=== PATIENT | female | born 1995 | race Caucasian/White ===

== ENCOUNTER 2017-05-21 15:51 | Inpatient (IN) | payer OTHER ==
[~2017-05-21] VITALS: Ht 149.9 cm; Wt 76.0 kg
--- OUTSIDE RECORDS SUMMARY | ~2017-05-21 | XMS ---
Demographics + + + | Address | [address] | | | [place] [address] | + + + | Preferred Language | Unknown | + + + | Marital Status | Unknown | + + + | Restorationist Affiliation | Unknown | + + + | Race | Unknown | + + + | Ethnic Group | Unknown | + + + Author + + + | Author | [facility] | + + + | Organization | [facility] | + + + | Address | 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 | | | | | | | | of cervix | | | | | | +---------+ + + +--------+ + + | Problem | Encounter | Z34.90 | | | Active | [id number] | | | for | | | | | | | | supervisio | | | | | | | | n of | | | | | | | | normal | | | | | | | | | | | | | | +---------+ + + +--------+ + + | Problem | Acute | 462 | | | Active | [id number] | | | pharyngiti | | | | | | | | s NOS | | | | | | +---------+ + + +--------+ + + | Problem | Headache | 784.0 | | | Active | [id number] | +---------+ + + +--------+ + + | Problem | 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
[~2017-05-21 15:51] MED LIST: ALLEGRA-D 24 H1 EACH PO; BACTRIM DS TAB1 EACH PO; BENADRYL25 MG PO; CLINDAMYCIN HC300 MG PO; MEDROL4 M1 PO; MIRENA1 EACH IY; NORCO 5-325 TA1 EACH PO; PREDNISONE20 MG PO; SUDOGEST30 MG PO
--- NOTE | 2017-05-23 09:14 | PR ---
[facility] [address] [place] [address] Signed PP Progress Notes Datetime Report Generated by CPN: 05/23/2017 09:14 SUBJECTIVE: [id number] Pain: Within normal limits Nausea/Vomiting: Denies Vital Signs: [id number] Vital Signs: Reviewed; Within Normal Limits Notable Details: PP Hgb/Hct = 10.4/30.4 EXAM: [id number] Abdomen/Uterus: Normal Lochia: Normal Extremities: Normal IMPRESSION/PLAN/PROCEDURES: [id number] Impression: Normal progression Plan: Discharge Procedures: None Progress Notes: Doing well, wants to go home Signing Physician: Carlyle Yates MD CC: *Electronically Signed* 05/23/17 0914 CARLYLE YATES MD PATIENT NAME: TERRENCE DYE PROGRESS NOTE DATE OF : 93 PHYSICIAN: CARLYLE YATES MD RPT #: [id number] REPORT IS CONFIDENTIAL AND NOT TO BE RELEASED WITHOUT AUTHORIZATION
== END 2017-05-23 17:20 | disposition home or self-care (01) | DRG 775 ==
LOC: US 15:51 → FBC 17:35
PROVIDERS: ADMIT General Practice
PROC: 10E0XZZ Delivery of Products of Conception, External Approach (ICD-10-PCS; principal; 2017-05-22)
PROC: 10907ZC Drainage of Amniotic Fluid, Therapeutic from Products of Conception, Via Natural or Artificial Opening (ICD-10-PCS; 2017-05-22)
PROC: 0HQ9XZZ Repair Perineum Skin, External Approach (ICD-10-PCS; 2017-05-22)
DX: O36.8130 Decreased fetal movements, third trimester, not applicable or unspecified (principal); O41.03X0 Oligohydramnios, third trimester, not applicable or unspecified; Z3A.37 37 weeks gestation of pregnancy; Z37.0 Single live birth; O70.0 First degree perineal laceration during delivery; O69.81X0 Labor and delivery complicated by cord around neck, without compression, not applicable or unspecified
CPT/HCPCS: 36415; 59025; 76819; 82565; 82570; 84156; 84450; 84520; 84550; 85025; 85027; J2590